=== PATIENT | male | born 1965 | race American Indian/Alaskan Native ===

== ENCOUNTER 2019-07-15 22:45 | Emergency (ER) | payer SELFPAY ==
--- NOTE | 2019-07-16 00:58 | Cat Scan Report ---
CT ABDOMEN AND PELVIS WITHOUT CONTRAST INDICATION: Right flank pain. COMPARISON: No relevant prior imaging study available. TECHNIQUE: Axial, coronal and sagittal CT imaging of the abdomen and pelvis was performed without co ntrast. Lack of intravenous contrast limits evaluation of the vascular and solid organs. All CT sca ns at this location are performed using CT dose reduction for ALARA by means of automated exposure co ntrol. FINDINGS: LOWER CHEST: No significant abnormality. LIVER: No significant abnormality. BILIARY: The gallbladder is surgically absent. No biliary ductal dilatation. PANCREAS: No significant abnormality. SPLEEN: No significant abnormality. ADRENALS: No significant abnormality. KIDNEYS AND URETERS: Multiple nonobstructive right renal stones measure up to 5 mm. There is mild rig ht hydroureteronephrosis secondary to a 4 mm stone located along the proximal third of the right uret er. There is mild right perinephric and periureteral fat stranding. A nonobstructive left upper renal pole stone measures 4 mm. There is mild left hydroureteronephrosis without visualization of a ureter al stone. No additional significant abnormality is seen. GI TRACT: No significant abnormality of the stomach, small bowel or colon. Unremarkable appendix. PERITONEUM: No free fluid. No free air. No fluid collection. LYMPH NODES: No significant adenopathy. VASCULATURE: No significant abnormality. URINARY BLADDER: The bladder is under distended with secondary wall thickening. There is a left poste rolateral bladder diverticulum measuring 3.7 cm and containing a 4 mm stone. REPRODUCTIVE ORGANS: The prostate gland is enlarged and measures 6.0 x 4.7 cm. ADDITIONAL FINDINGS: None. SKELETAL SYSTEM: No acute abnormality is seen. There are moderate degenerative changes throughout the spine. IMPRESSION: 1. Mild right hydroureteronephrosis secondary to a 4 mm proximal right ureteral stone. 2. Mild left hydroureteronephrosis without visualization of an obstructive stone. A recently passed l eft ureteral stone is a consideration. 3. Nonobstructive bilateral renal stones as above. 4. Additional findings as above. Signer Name: Bob Singh MD Signed: 07/16/2019 12:54 AM Workstation Name: [id number]
[2019-07-16 01:48] LABS: Basophils # (Auto) 0.1 K/mm3 (0.0-0.1); Basophils % (Auto) 0.4 % (0.0-1.8); Eosinophils # (Auto) 0.1 K/mm3 (0.0-0.4); Eosinophils % (Auto) 0.5 % (0.0-4.3); Hematocrit 43.8 % (35.5-45.6); Lymphocytes # (Auto) 1.6 K/mm3 (1.2-5.4); Lymphocytes % (Auto) 12.6 % (13.4-35.0); Mean Corpuscular HGB Conc 34 % (32-34); Mean Corpuscular Volume 97 fl (84-94); Monocytes # (Auto) 0.9 K/mm3 (0.0-0.8); Monocytes % (Auto) 7.2 % (0.0-7.3); Platelet Count 183 K/mm3 (140-440); Red Blood Count 4.52 M/mm3 (3.65-5.03); Red Cell Distribution Width 13.3 % (13.2-15.2)
[2019-07-16] MEDS ORDERED: ONDANSETRON 4 MG/2 ML INJ IV ONE (01:54)
[2019-07-16] MEDS ORDERED: SODIUM CHLORIDE 0.9% 1000 ML 1,000 ML IV ONE (01:54)
[2019-07-16] MEDS ORDERED: MORPHINE 4 MG/1 ML INJ IV ONE (01:54)
--- NOTE | 2019-07-16 02:07 | Emergency Department Report ---
ED Abdominal Pain HPI - General Chief Complaint: Abdominal Pain Stated Complaint: RT KIDNEY/BACK PAIN Time Seen by Provider: 07/16/19 01:17 Source: patient Mode of arrival: Ambulatory Limitations: No Limitations - History of Present Illness Initial Comments: Patient is a 53-year-old male who presents emergency room with complaints of right flank pain that began 2 days ago. He describes the pain as a sharp and stabbing pain. He has associated nausea. He denies any vomiting or fever. He states that he has a history of kidney stones and this feels similar to that. He states that he last had nephrolithiasis 8 years ago and had to have a lithotripsy at [facility]. Has a past medical history of hypertension, glaucoma, HIV which he states is undetectable. He states he has an allergy to penicillin and sulfa. - Related Data Previous Rx's Medication Instructions Recorded Last Taken Type Ciprofloxacin HCl [Ciprofloxacin 250 mg PO BID 7 Days #14 tablet 07/16/19 Unknown Rx TAB] Ondansetron [Zofran Odt] 4 mg PO Q8HR PRN #10 tab.rapdis 07/16/19 Unknown Rx Tamsulosin [Flomax] 0.4 mg PO QDAY #5 cap 07/16/19 Unknown Rx traMADoL [Ultram 50 MG tab] 50 mg PO Q6HR PRN #10 tablet 07/16/19 Unknown Rx Allergies Allergy/AdvReac Type Severity Reaction Status Date / Time Penicillins Allergy Rash Verified 07/15/19 23:09 Sulfa (Sulfonamide Allergy Rash Verified 07/15/19 23:09 Antibiotics) ED Review of Systems ROS: Stated complaint: RT KIDNEY/BACK PAIN Other details as noted in HPI Comment: All other systems reviewed and negative ED Past Medical Hx - Past Medical History Previous Medical History?: Yes Additional medical history: h/o kidney stones - Surgical History Past Surgical History?: No - Medications Home Medications: Home Medications Medication Instructions Recorded Confirmed Last Taken Type Ciprofloxacin HCl [Ciprofloxacin 250 mg PO BID 7 Days #14 tablet 07/16/19 Unknown Rx TAB] Ondansetron [Zofran Odt] 4 mg PO Q8HR PRN #10 tab.rapdis 07/16/19 Unknown Rx Tamsulosin [Flomax] 0.4 mg PO QDAY #5 cap 07/16/19 Unknown Rx traMADoL [Ultram 50 MG tab] 50 mg PO Q6HR PRN #10 tablet 07/16/19 Unknown Rx ED Physical Exam - General Limitations: No Limitations General appearance: alert, in no apparent distress - Head Head exam: Present: atraumatic, normocephalic - Eye Eye exam: Present: normal appearance - ENT ENT exam: Present: mucous membranes moist - Respiratory Respiratory exam: Present: normal lung sounds bilaterally. Absent: respiratory distress, wheezes, rales, rhonchi, stridor, chest wall tenderness, accessory muscle use, decreased breath sounds, prolonged expiratory - Cardiovascular Cardiovascular Exam: Present: regular rate, normal rhythm, normal heart sounds. Absent: systolic murmur, diastolic murmur, rubs, gallop - GI/Abdominal GI/Abdominal exam: Present: soft, normal bowel sounds. Absent: distended, tenderness, rebound, rigid - Back Exam Back exam: Present: CVA tenderness (R). Absent: CVA tenderness (L) - Neurological Exam Neurological exam: Present: alert, oriented X3 - Psychiatric Psychiatric exam: Present: normal affect, normal mood - Skin Skin exam: Present: warm, dry, intact ED Course Vital Signs 07/16/19 07/16/19 01:08 05:19 Temperature 98.7 F Pulse Rate 80 Respiratory 18 18 Rate Blood Pressure 128/84 [Left] O2 Sat by Pulse 99 100 Oximetry ED Medical Decision Making - Lab Data Result diagrams: 07/16/19 01:28 07/16/19 01:28 Lab Results 07/15/19 07/16/19 07/16/19 Range/Units Unknown 01:28 01:28 WBC 12.9 H (4.5-11.0) K/mm3 RBC 4.52 (3.65-5.03) M/mm3 Hgb 15.0 (11.8-15.2) gm/dl Hct 43.8 (35.5-45.6) % MCV 97 H (84-94) fl MCH 33 H (28-32) pg MCHC 34 (32-34) % RDW 13.3 (13.2-15.2) % Plt Count 183 (140-440) K/mm3 Lymph % (Auto) 12.6 L (13.4-35.0) % Boundary % (Auto) 7.2 (0.0-7.3) % Eos % (Auto) 0.5 (0.0-4.3) % Baso % (Auto) 0.4 (0.0-1.8) % Lymph # 1.6 (1.2-5.4) K/mm3 Boundary # 0.9 H (0.0-0.8) K/mm3 Eos # 0.1 (0.0-0.4) K/mm3 Baso # 0.1 (0.0-0.1) K/mm3 Seg Neutrophils % 79.3 H (40.0-70.0) % Seg Neutrophils # 10.2 H (1.8-7.7) K/mm3 Sodium 141 (137-145) mmol/L Potassium 4.4 (3.6-5.0) mmol/L Chloride 105.8 (98-107) mmol/L Carbon Dioxide 23 (22-30) mmol/L Anion Gap 17 mmol/L BUN 18 (9-20) mg/dL Creatinine 1.7 H (0.8-1.5) mg/dL Estimated GFR 51 ml/min BUN/Creatinine Ratio 11 % Glucose 105 H (75-100) mg/dL Calcium 9.2 (8.4-10.2) mg/dL Urine Color Yellow (Yellow) Urine Turbidity Clear (Clear) Urine pH 5.0 (5.0-7.0) Ur Specific [place] 1.025 (1.003-1.030) Urine Protein <15 mg/dl (Negative) mg/dL Urine Glucose (UA) Neg (Negative) mg/dL Urine Ketones Neg (Negative) mg/dL Urine Blood Neg (Negative) Urine Nitrite Neg (Negative) Urine Bilirubin Neg (Negative) Urine Urobilinogen < 2.0 (<2.0) mg/dL Ur Leukocyte Esterase Tr (Negative) Urine WBC (Auto) 13.0 H (0.0-6.0) /HPF Urine RBC (Auto) 1.0 (0.0-6.0) /HPF U Epithel Cells (Auto) < 1.0 (0-13.0) /HPF Urine Mucus Few /HPF - Radiology Data Radiology results: report reviewed CT ABDOMEN AND PELVIS WITHOUT CONTRAST INDICATION: Right flank pain. COMPARISON: No relevant prior imaging study available. TECHNIQUE: Axial, coronal and sagittal CT imaging of the abdomen and pelvis was performed without contrast. Lack of intravenous contrast limits evaluation of the vascular and solid organs. All CT scans at this location are performed using CT dose reduction for ALARA by means of automated exposure control. FINDINGS: LOWER CHEST: No significant abnormality. LIVER: No significant abnormality. BILIARY: The gallbladder is surgically absent. No biliary ductal dilatation. PANCREAS: No significant abnormality. SPLEEN: No significant abnormality. ADRENALS: No significant abnormality. KIDNEYS AND URETERS: Multiple nonobstructive right renal stones measure up to 5 mm. There is mild right hydroureteronephrosis secondary to a 4 mm stone located along the proximal third of the right ureter. There is mild right perinephric and periureteral fat stranding. A nonobstructive left upper renal pole stone measures 4 mm. There is mild left hydroureteronephrosis without visualization of a ureteral stone. No additional significant abnormality is seen. GI TRACT: No significant abnormality of the stomach, small bowel or colon. Unremarkable appendix. PERITONEUM: No free fluid. No free air. No fluid collection. LYMPH NODES: No significant adenopathy. VASCULATURE: No significant abnormality. URINARY BLADDER: The bladder is under distended with secondary wall thickening. There is a left posterolateral bladder diverticulum measuring 3.7 cm and containing a 4 mm stone. REPRODUCTIVE ORGANS: The prostate gland is enlarged and measures 6.0 x 4.7 cm. ADDITIONAL FINDINGS: None. SKELETAL SYSTEM: No acute abnormality is seen. There are moderate degenerative changes throughout the spine. IMPRESSION: 1. Mild right hydroureteronephrosis secondary to a 4 mm proximal right ureteral stone. 2. Mild left hydroureteronephrosis without visualization of an obstructive stone. A recently passed left ureteral stone is a consideration. 3. Nonobstructive bilateral renal stones as above. 4. Additional findings as above. Signer Name: Bob Singh MD Signed: 07/16/2019 12:54 AM Workstation Name: [id number] Transcribed By: BLAKE Dictated By: Bob Singh MD Electronically Authenticated By: Bob Singh MD Signed Date/Time: 07/16/19 0054 - Medical Decision Making Patient is a 53-year-old male who presents emergency room with complaints of right flank pain that began 2 days ago. He describes the pain as a sharp and stabbing pain. He has associated nausea. He denies any vomiting or fever. He states that he has a history of kidney stones and this feels similar to that. He states that he last had nephrolithiasis 8 years ago and had to have a lithotripsy at [facility]. Has a past medical history of hypertension, glaucoma, HIV which he states is undetectable. He states he has an allergy to penicillin and sulfa. Vitals are normal. Labs significant for a white blood cell count of 12.9, creatinine 1.7, GFR 51, UA shows white blood cells and trace leukocyte esterase. Do not have prior labs to compare kidney function. CT abd pelvis: 1. Mild right hydroureteronephrosis secondary to a 4 mm proximal right ureteral stone. 2. Mild left hydroureteronephrosis without visualization of an obstructive stone. A recently passed left ureteral stone is a consideration. 3. Nonobstructive bilateral renal stones as above. 4. Additional findings as above. Patient given 1 L of normal saline, antibiotics, pain medications. Discussed case with Dr. Bowman, ER attending who states that if patient's pain has improved pt can follow-up with urology as an outpatient. Patient states that his pain has significantly improved and he is feeling much better. Patient given prescription for pain medication, nausea medication, antibiotics, tamsulosin. advised pt to please take medication as prescribed. Increase your water intake over the next several days. Do not drive or operate heavy machinery while taking pain medication. Follow up with Dr. Lopez, urologist in the next 2-3 days. Return to the emergency room for any new or worsening symptoms. - Differential Diagnosis nephrolithiasis, STD, UTI, pyelonephritis Critical care attestation.: If time is entered above; I have spent that time in minutes in the direct care of this critically ill patient, excluding procedure time. ED Disposition Clinical Impression: Right flank pain, Nephrolithiasis UTI (urinary tract infection) Qualifiers: Urinary tract infection type: acute cystitis Hematuria presence: without hematuria Qualified Code(s): N30.00 - Acute cystitis without hematuria Disposition: TO HOME OR SELFCARE Is pt being admited?: No Does the pt Need Aspirin: No Condition: Stable Instructions: Kidney Stones (ED), Urinary Tract Infection in Men (ED) Additional Instructions: Please take medication as prescribed. Increase your water intake over the next several days. Do not drive or operate heavy machinery while taking pain medication. Follow up with Dr. Lopez, urologist in the next 2-3 days. Return to the emergency room for any new or worsening symptoms. Prescriptions: Ciprofloxacin HCl [Ciprofloxacin TAB] 250 mg PO BID 7 Days #14 tablet Tamsulosin [Flomax] 0.4 mg PO QDAY #5 cap traMADoL [Ultram 50 MG tab] 50 mg PO Q6HR PRN #10 tablet PRN Reason: Pain , Severe (7-10) Ondansetron [Zofran Odt] 4 mg PO Q8HR PRN #10 tab.rapdis PRN Reason: nausea Referrals: HAL LOPEZ MD [Staff Physician] - 2-3 Days Time of Disposition: 04:59 Print Language: PUERTO RICAN
[2019-07-16 02:10] LABS: Calcium 9.2 mg/dL (8.4-10.2)
[2019-07-16 03:21] LABS: Bilirubin,Urine NEG (Negative); Blood,Urine NEG (Negative); Color,Urine Yellow (Yellow); Mucus,Urine FEW /HPF; Protein,Urine <15 mg/dL mg/dL (Negative); Urobilinogen,Urine < 2.0 mg/dL (<2.0)
[2019-07-16] MEDS ORDERED: cefTRIAXone/NS 1 GM/50 ML 1 GM/50 ML BAG IV ONE (04:05)
[2019-07-16] MEDS ORDERED: AZITHROMYCIN 1 GM ORAL PWDR PACKET PO ONE (04:05)
[2019-07-16 05:22] VITALS: BP 128/84
== END 2019-07-16 05:28 | disposition home or self-care (01) ==
LOC: ED 22:45
DX: N39.0 Urinary tract infection, site not specified (principal); N20.0 Calculus of kidney; Z88.0 Allergy status to penicillin; Z88.1 Allergy status to other antibiotic agents; Z79.899 Other long term (current) drug therapy
CPT/HCPCS: 36415; 74176; 80048; 81001; 85025; 87086; 96365; 96375; 99284; J0696; J2270; J2405; J7030

== ENCOUNTER 2021-02-24 09:20 | Emergency (ER) | payer MEDICARE ==
--- NOTE | 2021-02-24 10:37 | Emergency Department Report ---
Minor Respiratory - HPI Chief Complaint: Pain General Stated Complaint: BACK PAIN, SORE THROAT, CHEST HEAVINESS Time Seen by Provider: 02/24/21 09:53 Duration: 3 Days Pain Location: Chest Severity: mild Minor Respiratory: Yes Able to Tolerate Fluids, Yes Cough, No Rhinorrhea, No Sore Throat, No Ear Pain, No Sick Contacts, No Hemoptysis, No Chest Pain, No Shortness of Breath, No Fever Other History: 55 YO MALE COMES TO ER STATING THAT A WOMAN COUGHED IN HIS FACE ON MONDAY. SINCE THEN HE REPORTS CONGESTION AND COUGH. DRY COUGH. NO SPUTUM. NO CP EXCEPT WHEN COUGHING. NO FEVER. NO N/V OR DIARRHEA. NO SOB WITH ACTIVITY OR AT REST. NO WHEEZING. HE STATES HE IS CONCERNED BECAUSE HE IS HIV POS. PT SEES DR GALLEGOS. LAST SEEN 2 WEEKS AGO AND LABS WERE "FINE". NO FEVER OR CHILLS. AMBULATORY. NON TOXIC AND NON ILL APPEARING ON ARRIVAL TO ER ED Review of Systems ROS: Stated complaint: BACK PAIN, SORE THROAT, CHEST HEAVINESS Other details as noted in HPI Comment: All other systems reviewed and negative ED Past Medical Hx - Past Medical History Previous Medical History?: Yes Hx Hypertension: Yes Hx HIV: Yes Additional medical history: h/o kidney stones - Surgical History Past Surgical History?: Yes Additional Surgical History: HERNIA/ EYE. GLAUCOMA - Family History Family history: no significant - Social History Smoking Status: Current Every Day Smoker Substance Use Type: Alcohol - Medications Home Medications: Home Medications Medication Instructions Recorded Confirmed Last Taken Type Azithromycin [Zithromax Z-TOMMY] 250 mg PO DAILY #6 tablet 02/24/21 Unknown Rx Benzonatate [Tessalon Perles] 100 mg PO Q12H PRN #10 capsule 02/24/21 Unknown Rx Cetirizine HCl [ZyrTEC] 10 mg PO DAILY #30 capsule 02/24/21 Unknown Rx Fluticasone [Flonase] 1 spray NS QDAY #1 bottle 02/24/21 Unknown Rx methylPREDNISolone [Medrol 4MG 4 mg PO FS #1 tab.ds.pk 02/24/21 Unknown Rx DOSEPAK (21 tabs)] Minor Respiratory Exam - Exam General: Vital signs noted. No distress. Alert and acting appropriately. HEENT: Yes Moist Mucous Membranes, No Pharyngeal Erythema, No Pharyngeal Exudates, No Rhinorrhea, No Conjuctival Injection, No Frontal Tenderness, No Maxillary Tenderness Ear: Neither TM Bulge, Neither TM Erythema, Neither EAC Pain, Neither EAC Discharge Neck: Yes Supple, No Adenopathy Lungs: Yes Good Air Exchange, No Wheezes, No Ronchi, No Stridor, No Cough, No Labored Respirations, No Retractions, No Use of Accessory Muscles, No Other Abnormal Lung Sounds Heart: Yes Regular, No Murmur Abdomen: Yes Normal Bowel Sounds, No Tenderness, No Peritoneal Signs Skin: No Rash, No Edema Neurologic: Alert and oriented, no deficits. Musculoskeletal: Unremarkable. ED Course Vital Signs 02/24/21 09:25 Temperature 99.4 F Pulse Rate 99 H Respiratory 20 Rate Blood Pressure 124/81 O2 Sat by Pulse 97 Oximetry ED Medical Decision Making - EKG Data EKG shows normal: sinus rhythm Rate: normal - EKG Data When compared to previous EKG there are: no significant change Interpretation: no acute changes 02/24/21 11:20 ORDERED BY TEST BORE HELPER; PT DENIES CP UNLESS IT IS WHEN HE IS COUGHING - Radiology Data Radiology results: report reviewed, image reviewed NAP - Medical Decision Making HOME MEDS VICTARVY BP MEDS 3 EYE DROPS FOR GLAUCOMA ALLERGY BACTRUM- SKIN RASH PER EMR PT HAS TOLERATED AZITHROMYCIN IN THE PAST EXAM WNL NO WHEEZING XRAY NAP GIVEN HX WILL TREAT URI HE ADDS HES BEEN TAKING OTC MEDICATIONS AND HE IS NOT SURE IF HE SHOULD BECAUSE OF HIS BP. I TOLD HIM I'D GIVE HIM RX FOR ASSOCIATED SYMPTOMS TO AVOID OTC CONCERNS. Vital Signs 02/24/21 09:25 Temperature 99.4 F Pulse Rate 99 H Respiratory 20 Rate Blood Pressure 124/81 O2 Sat by Pulse 97 Oximetry PT IS AMBULATORY NON ILL AND NON TOXIC ON EXAM TAKING PO DC HOME WITH DC PLAN OF CARE INCLUDING MEDS, DIET, ACTIVITY, FOLLOW UP. HE UNDERSTANDS IF HE GETS A HIGH FEVER THAT DOES NOT RESPOND TO TYLENOL/MOTRIN THAT HE SHOULD RETURN TO ER. HE WILL SEE DR GALLEGOS ON MONDAY FOR RECHECK GIVEN HIS HX. - Differential Diagnosis RO PNA Critical care attestation.: If time is entered above; I have spent that time in minutes in the direct care of this critically ill patient, excluding procedure time. ED Disposition Clinical Impression: URI (upper respiratory infection) Disposition: DC-01 TO HOME OR SELFCARE Is pt being admited?: No Does the pt Need Aspirin: No Condition: Stable Instructions: Upper Respiratory Infection, Adult, [id number] Additional Instructions: MEDS ORDERED TODAY FOLLOW UP WITH ID ON MONDAY TO BE SURE YOU ARE GETTING BETTER CONTINUE HOME MEDS STAY WELL HYDRATED MOTRIN OR TYLENOL FOR FEVER Prescriptions: Fluticasone [Flonase] 1 spray NS QDAY #1 bottle methylPREDNISolone [Medrol 4MG DOSEPAK (21 tabs)] 4 mg PO FS #1 tab.ds.pk Benzonatate [Tessalon Perles] 100 mg PO Q12H PRN #10 capsule PRN Reason: Cough Azithromycin [Zithromax Z-TOMMY] 250 mg PO DAILY #6 tablet Cetirizine HCl [ZyrTEC] 10 mg PO DAILY #30 capsule Referrals: MANDY VELAZCO MD [Staff Physician] - 3-5 Days Time of Disposition: 10:34
--- NOTE | 2021-02-24 10:53 | XRay Report ---
CHEST 2 VIEWS INDICATION: COUGH. COMPARISON: None FINDINGS: Support devices: None. Heart: Within normal limits. Lungs/pleura: No acute air space or interstitial disease. No pneumothorax. Additional findings: None. IMPRESSION: No acute findings. Signer Name: Chan Bermudez Jr, MD Signed: 02/24/2021 10:49 AM Workstation Name: [id number]
[2021-02-24 11:37] VITALS: BP 131/71
--- NOTE | 2021-02-25 12:23 | Electrocardiograph Report ---
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
== END 2021-02-24 11:47 | disposition home or self-care (01) ==
LOC: ED 09:20
DX: J06.9 Acute upper respiratory infection, unspecified (principal); I10 Essential (primary) hypertension; F17.200 Nicotine dependence, unspecified, uncomplicated; Z21 Asymptomatic human immunodeficiency virus [HIV] infection status; Z98.890 Other specified postprocedural states; Z79.2 Long term (current) use of antibiotics; Z79.899 Other long term (current) drug therapy; Z88.0 Allergy status to penicillin; Z88.2 Allergy status to sulfonamides
CPT/HCPCS: 71046; 93005